=== PATIENT | male | born 1945 | race Hispanic/Latino ===

== ENCOUNTER 2019-07-24 21:15 | Emergency (ER) | payer OTHER ==
[2019-07-24] MEDS ORDERED: HYDROCODONE/APAP 10/325 TAB ONE (22:22)
[2019-07-24] MEDS ORDERED: HYDROCODONE/APAP 5/325 MG TAB ONE (22:24)
--- NOTE | 2019-07-24 23:49 | ER ---
Nurse's Notes [facility] Name: Gerry Silverman Age: 73 yrs Sex: Male : 1945 Arrival Date: 07/24/2019 Time: 21:20 Bed 23 Private MD: Fidel Santoro F Diagnosis: Contusion of right elbow Presentation: 07/24 21:36 Presenting complaint: Patient states: RIGHT elbow pain s/p fall sometime before 07/22. sr5 Pt lost his on 07/21 and doesn't remember exactly what day the fall was, but reports that he tripped on clothes on the floor, falling to the floor. Denies hitting his head. Denies LOC. Reports limited ROM in RIGHT elbow with worsening pain. Transition of care: patient was not received from another setting of care. Onset of symptoms was July 21, 2019. Care prior to arrival: None. 21:36 Method Of Arrival: Ambulatory 5 21:36 Acuity: KIRSTEN 4 sr5 Triage Assessment: 21:39 General: Appears uncomfortable, Behavior is cooperative. Pain: Complains of pain in sr5 dorsal aspect of right forearm, right elbow and palmar aspect of right forearm Pain currently is 10 out of 10 on a pain scale. Neuro: Level of Consciousness is awake, alert, obeys commands, Oriented to person, place, time, situation. Cardiovascular: Capillary refill < 3 seconds in bilateral fingers Patient's skin is warm and dry. Respiratory: Respiratory effort is even, unlabored, Respiratory pattern is regular, symmetrical. GI: No signs and/or symptoms were reported involving the gastrointestinal system. : No signs and/or symptoms were reported regarding the genitourinary system. Derm: No signs and/or symptoms reported regarding the dermatologic system. Musculoskeletal: No signs and/or symptoms reported regarding the musculoskeletal system. Historical: - Allergies: 21:39 PENICILLINS; sr5 - PMHx: 21:39 Hypertension; Hyperlipidemia; sr5 - Social history:: Smoking status: Patient/guardian denies using tobacco, never smoked. - Ebola Screening: : Patient negative for fever greater than or equal to 101.5 degrees Fahrenheit, and additional compatible Ebola Virus Disease symptoms. Screenin:48 Abuse screen: Denies threats or abuse. Nutritional screening: No deficits noted. sr5 Tuberculosis screening: No symptoms or risk factors identified. Fall Risk None identified. Assessment: 22:32 Reassessment: Xray at bedside. sr5 23:48 Reassessment: Pt reports decreased pain, placed in sling, remains AA\T\Ox4, equal sr5 unlabored resp, skin warm/dry/nc. Vital Signs: 21:39 BP 141 / 63; Pulse 118; Resp 18; Temp 99.7(O); Pulse Ox 95% on R/A; Weight 81.65 kg sr5 (R); Height 5 ft. 3 in. (160.02 cm); Pain 10/10; 23:48 Pulse 110; Resp 18; Pulse Ox 99% ; Pain 5/10; sr5 21:39 Body Mass Index 31.89 (81.65 kg, 160.02 cm) sr5 ED Course: 21:20 Patient arrived in ED. es 21:22 Fidel Santoro MD is Private Physician. es 21:36 Darius Calloway, RN is Primary Nurse. sr5 21:38 Triage completed. sr5 21:39 Arm band placed on left wrist. Patient placed in an exam room. sr5 22:05 Juan Jose Massey MD is Attending Physician. tw4 22:47 Elbow Right 3 View XRAY In Process Unspecified. EDMS 23:45 Fidel Santoro MD is Referral Physician. tw4 23:48 Ron Lopez MD is Referral Physician. tw4 23:48 Patient has correct armband on for positive identification. sr5 23:48 No provider procedures requiring assistance completed. Patient did not have IV access sr5 during this emergency room visit. Sling applied to right arm. Administered Medications: 22:22 Drug: [place] 5 mg-325 mg 1 tabs Route: PO; sr5 Outcome: 23:46 Discharge ordered by MD. tw4 23:48 Discharged to home ambulatory, with family. sr5 23:48 Condition: good 23:48 Discharge instructions given to patient, family, Instructed on discharge instructions, follow up and referral plans. medication usage, sling Demonstrated understanding of instructions, follow-up care, medications, Prescriptions given X 2. 23:58 Patient left the ED. sr5 Signatures: Dispatcher [employer] EDMS Chaya Hernandez Darius Calloway, RN RN sr5 Shilpa, Juan Jose, MD MD tw4
--- NOTE | 2019-07-24 23:49 | EDPHYS ---
Physician Documentation [facility] Name: Gerry Silverman Age: 73 yrs Sex: Male : 1945 Arrival Date: 07/24/2019 Time: 21:20 Bed 23 Private MD: Fidel Santoro F ED Physician Juan Jose Massey HPI: 07/25 05:34 This 73 yrs old Male presents to ER via Ambulatory with complaints of Elbow tw4 pain. 05:34 The patient or guardian complains of pain. The complaints affect the right antecubital tw4 area and right elbow. Context: The problem was sustained at home. Onset: The symptoms/episode began/occurred today. Treatment prior to arrival includes: no previous treatment. Associated signs and symptoms: The patient has no apparent associated signs or symptoms. The patient has not experienced similar symptoms in the past. Historical: - Allergies: 07/24 21:39 PENICILLINS; sr5 - PMHx: 21:39 Hypertension; Hyperlipidemia; sr5 - Social history:: Smoking status: Patient/guardian denies using tobacco, never smoked. - Ebola Screening: : Patient negative for fever greater than or equal to 101.5 degrees Fahrenheit, and additional compatible Ebola Virus Disease symptoms. ROS: 07/25 05:34 Constitutional: Negative for fever, chills, and weight loss, Eyes: Negative for injury, tw4 pain, redness, and discharge, Cardiovascular: Negative for chest pain, palpitations, and edema, Respiratory: Negative for shortness of breath, cough, wheezing, and pleuritic chest pain, Abdomen/GI: Negative for abdominal pain, nausea, vomiting, diarrhea, and constipation, Back: Negative for injury and pain. MS/extremity: Positive for injury or acute deformity, contusion, decreased range of motion, pain, swelling, tenderness. Exam: 05:34 Constitutional: This is a well developed, well nourished patient who is awake, alert, tw4 and in no acute distress. Head/Face: Normocephalic, atraumatic. Chest/axilla: Normal chest wall appearance and motion. Nontender with no deformity. No lesions are appreciated. Cardiovascular: Regular rate and rhythm with a normal S1 and S2. No gallops, murmurs, or rubs. Normal PMI, no JVD. No pulse deficits. Respiratory: Lungs have equal breath sounds bilaterally, clear to auscultation and percussion. No rales, rhonchi or wheezes noted. No increased work of breathing, no retractions or nasal flaring. Abdomen/GI: Soft, non-tender, with normal bowel sounds. No distension or tympany. No guarding or rebound. No evidence of tenderness throughout. Neuro: Awake and alert, GCS 15, oriented to person, place, time, and situation. Cranial nerves II-XII grossly intact. Motor strength 5/5 in all extremities. Sensory grossly intact. Cerebellar exam normal. Normal gait. 05:34 Musculoskeletal/extremity: Extremities: all appear grossly normal, with no appreciated pain with palpation. Vital Signs: 07/24 21:39 BP 141 / 63; Pulse 118; Resp 18; Temp 99.7(O); Pulse Ox 95% on R/A; Weight 81.65 kg sr5 (R); Height 5 ft. 3 in. (160.02 cm); Pain 10/10; 23:48 Pulse 110; Resp 18; Pulse Ox 99% ; Pain 5/10; sr5 21:39 Body Mass Index 31.89 (81.65 kg, 160.02 cm) sr5 MDM: 22:05 Patient medically screened. tw4 07/25 05:34 Differential diagnosis: dislocation, open fracture, contusion, abrasion. Data reviewed: tw4 vital signs, nurses notes. Data interpreted: monitor car operator: rhythm is regular. Counseling: I had a detailed discussion with the patient and/or guardian regarding: the historical points, exam findings, and any diagnostic results supporting the discharge/admit diagnosis. Special discussion: I discussed with the patient/guardian in detail that at this point there is no indication for admission to the hospital. It is understood, however, that if the symptoms persist or worsen the patient needs to return immediately for re-evaluation. 07/24 22:20 Order name: Elbow Right 3 View XRAY tw4 Administered Medications: 07/24 22:22 Drug: [place] 5 mg-325 mg 1 tabs Route: PO; sr5 Disposition: 07/24/19 23:46 Discharged to Home. Impression: Contusion of right elbow. - Condition is Stable. - Discharge Instructions: Elbow Contusion. - Prescriptions for Tramadol 50 mg Oral Tablet - take 1 tablet by ORAL route every 8 hours as needed; 12 tablet. Ativan 1 mg Oral Tablet - take 1 tablet by ORAL route every 8 hours As needed; 5 tablet. - Medication Reconciliation Form, Thank You Letter, Antibiotic Education, Prescription Opioid Use form. - Follow up: Fidel Santoro MD; When: Upon discharge from the Emergency Department; Reason: Recheck today's complaints, Continuance of care. Follow up: Ron Lopez MD; When: Upon discharge from the Emergency Department; Reason: Recheck today's complaints, Continuance of care. - Problem is new. - Symptoms have improved. Signatures: Dispatcher [employer] EDMS Darius Calloway RN RN sr5 Juan Jose Massey MD MD tw4 Corrections: (The following items were deleted from the chart) 23:48 23:46 07/24/2019 23:46 Discharged to Home. Impression: Contusion of right elbow. tw4 Condition is Stable. Forms are Medication Reconciliation Form, Thank You Letter, Antibiotic Education, Prescription Opioid Use. Follow up: Fidel Santoro; When: Upon discharge from the Emergency Department; Reason: Recheck today's complaints, Continuance of care. Problem is new. Symptoms have improved. tw4 23:58 23:48 07/24/2019 23:46 Discharged to Home. Impression: Contusion of right elbow. sr5 Condition is Stable. Discharge Instructions: Elbow Contusion. Prescriptions for Tramadol 50 mg Oral Tablet - take 1 tablet by ORAL route every 8 hours as needed; 12 tablet. and Forms are Medication Reconciliation Form, Thank You Letter, Antibiotic Education, Prescription Opioid Use. Follow up: Fidel Santoro; When: Upon discharge from the Emergency Department; Reason: Recheck today's complaints, Continuance of care. Follow up: Ron Lopez; When: Upon discharge from the Emergency Department; Reason: Recheck today's complaints, Continuance of care. Problem is new. Symptoms have improved. tw4
[2019-07-25 00:33] VITALS: BP 141/63; TEMP 99.7
[2019-07-25 00:34] VITALS: O2SAT 99
--- NOTE | 2019-07-25 09:15 | RAD REPORT ---
EXAM DESCRIPTION: RAD - Elbow Right 3 View - 07/24/2019 10:45 pm CLINICAL HISTORY: Persistent right elbow pain following fall several days earlier Send COMPARISON: None. FINDINGS: Radial head appears intact. This is the most common site for fracture. No other evidence f or fracture change. There is some elevation of the posterior fat pad but no fluid fluid level seen. P atient has some mild spurring along the articular margins of the joints. There is calcification at th e triceps attachment to the olecranon. No foreign body or other soft tissue abnormality. No other sig nificant finding. IMPRESSION: No fracture is seen. The patient does have dilatation of the posterior fat pad. Repeat imaging in 7 days could be performed if the patient has continued symptoms concerning for frac ture. MR imaging or CT imaging could also be employed to evaluate for acute bone or joint injury.
== END 2019-07-24 23:58 | disposition home or self-care (01) ==
LOC: ER 21:15
DX: S50.01XA Contusion of right elbow, initial encounter (principal); X58.XXXA Exposure to other specified factors, initial encounter; Y93.9 Activity, unspecified; Y92.009 Unspecified place in unspecified non-institutional (private) residence as the place of occurrence of the external cause; I10 Essential (primary) hypertension; Z88.0 Allergy status to penicillin
CPT/HCPCS: 99284

== ENCOUNTER 2019-08-26 22:53 | Emergency (ER) | payer OTHER ==
[2019-08-26] MEDS ORDERED: TRAMADOL HCL 50 MG TAB ONE (23:58)
[2019-08-27] MEDS ORDERED: HYDROCODONE/APAP 5/325 MG TAB ONE (00:34)
[2019-08-27] MEDS ORDERED: ENOXAPARIN 60 MG/0.6 ML SQ ONE (02:51)
--- NOTE | 2019-08-27 05:42 | EDPHYS ---
Physician Documentation [facility] Name: Gerry Silverman Age: 73 yrs Sex: Male : 1945 Arrival Date: 08/26/2019 Time: 22:56 Bed 6 Private MD: ED Physician Juan Jose Massey HPI: 08/27 04:17 This 73 yrs old Male presents to ER via Ambulatory with complaints of Foot tw4 Pain. 04:17 The patient presents with pain. The complaints affect the left foot. Context: The tw4 problem was sustained at home. Onset: The symptoms/episode began/occurred 2 week(s) ago, and became worse yesterday. Modifying factors: The symptoms are alleviated by nothing, the symptoms are aggravated by weight bearing, movement. Associated signs and symptoms: The patient has no apparent associated signs or symptoms. The patient has not experienced similar symptoms in the past. Historical: - Allergies: 08/26 23:13 PENICILLINS; bb - Home Meds: 23:13 Lisinopril Oral [Active]; gabapentin oral oral [Active]; blood thinner [Active]; bb Metoprolol Tartrate Oral [Active]; Omeprazole Oral [Active]; Iron CR Oral [Active]; Vit D [Active]; - PMHx: 23:13 Hyperlipidemia; Hypertension; Cancer; bb - PSHx: 23:13 stents; Appendectomy; tumor removed from bladder; bb - Immunization history:: Adult Immunizations up to date. - Coronavirus screen:: The patient has NOT traveled to [place], [place], or [place] in the past 14 days. Proceed with normal triage process as indicated. - Social history:: Smoking status: Patient denies any tobacco usage or history of. - Ebola Screening: : No symptoms or risks identified at this time. ROS: 08/27 04:17 MS/extremity: Positive for pain, tenderness, of the left lateral ankle, lateral aspect tw4 of left foot, left medial ankle, medial aspect of left foot and anterior aspect of left ankle. Constitutional: Negative for fever, chills, and weight loss, Eyes: Negative for injury, pain, redness, and discharge, Cardiovascular: Negative for chest pain, palpitations, and edema, Respiratory: Negative for shortness of breath, cough, wheezing, and pleuritic chest pain, Abdomen/GI: Negative for abdominal pain, nausea, vomiting, diarrhea, and constipation, Back: Negative for injury and pain, Skin: Negative for injury, rash, and discoloration, Neuro: Negative for headache, weakness, numbness, tingling, and seizure. MS/extremity: Positive for pain, swelling, tenderness. Exam: 04:17 Constitutional: This is a well developed, well nourished patient who is awake, alert, tw4 and in no acute distress. Head/Face: Normocephalic, atraumatic. Chest/axilla: Normal chest wall appearance and motion. Nontender with no deformity. No lesions are appreciated. Cardiovascular: Regular rate and rhythm with a normal S1 and S2. No gallops, murmurs, or rubs. Normal PMI, no JVD. No pulse deficits. Respiratory: Lungs have equal breath sounds bilaterally, clear to auscultation and percussion. No rales, rhonchi or wheezes noted. No increased work of breathing, no retractions or nasal flaring. Abdomen/GI: Soft, non-tender, with normal bowel sounds. No distension or tympany. No guarding or rebound. No evidence of tenderness throughout. Back: No spinal tenderness. No costovertebral tenderness. Full range of motion. Neuro: Awake and alert, GCS 15, oriented to person, place, time, and situation. Cranial nerves II-XII grossly intact. Motor strength 5/5 in all extremities. Sensory grossly intact. Cerebellar exam normal. Normal gait. 04:17 Musculoskeletal/extremity: Extremities: noted in the left lateral ankle, left Achilles, left medial ankle and anterior aspect of left ankle: decreased ROM, pain, swelling, tenderness, ROM: limited active range of motion due to pain, limited passive range of motion due to pain, Circulation is intact in all extremities. Sensation intact. Compartment Syndrome exam of affected extremity: is normal. Vital Signs: 08/26 23:13 BP 138 / 55; Pulse 98; Resp 16 S; Temp 98.3(O); Pulse Ox 95% on R/A; Weight 83.01 kg bb (R); Height 5 ft. 3 in. (160.02 cm) (R); Pain 10/10; 08/27 00:00 BP 133 / 67; Pulse 94; Resp 17; Pulse Ox 94% on R/A; rv 00:45 BP 132 / 71; Pulse 90; Resp 17; Pulse Ox 95% on R/A; rv 08/26 23:13 Body Mass Index 32.42 (83.01 kg, 160.02 cm) bb MDM: 08/26 23:21 Patient medically screened. tw4 08/27 04:20 Differential diagnosis: fracture, sprain, arthritis, gout. Data reviewed: vital signs, tw4 nurses notes. Data reviewed: lab test result(s), uric acid level. Data interpreted: Pulse oximetry: Interpretation: normal. Test interpretation: by ED physician or midlevel provider: plain radiologic studies. Counseling: I had a detailed discussion with the patient and/or guardian regarding: the historical points, exam findings, and any diagnostic results supporting the discharge/admit diagnosis, lab results, radiology results. ED course: labs revealed elevated uric acid level. 08/27 00:20 Order name: Uric Acid; Complete Time: 01:39 tw4 08/26 23:53 Order name: Ankle Left 3 View XRAY tw4 Administered Medications: 08/26 23:59 Drug: traMADol 50 mg {Note: RASS 0.} Route: PO; rv 08/27 00:55 Follow up: Response: No adverse reaction; RASS: Alert and Calm (0) rv 00:41 Drug: [place] 5 mg-325 mg 1 tabs Route: PO; rv 01:59 Follow up: Response: No adverse reaction; Marked relief of symptoms; Pain is decreased; rv RASS: Alert and Calm (0) Disposition: 08/27/19 01:39 Discharged to Home. Impression: Gout. - Condition is Stable. - Discharge Instructions: Gout. - Prescriptions for Allopurinol 100 mg Oral Tablet - take 1 tablet by ORAL route once daily; 30 tablet. - Medication Reconciliation Form, Thank You Letter, Antibiotic Education, Prescription Opioid Use form. - Follow up: Private Physician; When: Upon discharge from the Emergency Department; Reason: Recheck today's complaints, Continuance of care. - Problem is new. - Symptoms have improved. Signatures: Dispatcher [employer] EDMS Paula Gaston RN RN bb Juan C Loya RN RN ao Wadley, Terrence, MD MD tw4 Patric Holder RN RN rv Corrections: (The following items were deleted from the chart) 01:41 01:39 08/27/2019 01:39 Discharged to Home. Impression: Gout. Condition is Stable. Forms tw4 are Medication Reconciliation Form, Thank You Letter, Antibiotic Education, Prescription Opioid Use. Problem is new. Symptoms have improved. tw4 02:02 01:41 08/27/2019 01:39 Discharged to Home. Impression: Gout. Condition is Stable. Forms ao are Medication Reconciliation Form, Thank You Letter, Antibiotic Education, Prescription Opioid Use. Follow up: Private Physician; When: Upon discharge from the Emergency Department; Reason: Recheck today's complaints, Continuance of care. Problem is new. Symptoms have improved. tw4
--- NOTE | 2019-08-27 05:42 | ER ---
Nurse's Notes [facility] Name: Gerry Silverman Age: 73 yrs Sex: Male : 1945 Arrival Date: 08/26/2019 Time: 22:56 Bed 6 Private MD: Diagnosis: Gout Presentation: 08/26 23:08 Presenting complaint: Patient states: he is having left lateral ankle pain since this bb morning pain is 10/10 causing him difficulty walking, pt broke heel to left foot years ago and he has hx of sciatic nerve pain and was seeing pain management but pills were not working so he quit going. Transition of care: patient was not received from another setting of care. Onset of symptoms was August 26, 2019. Risk Assessment: Do you want to hurt yourself or someone else? Patient reports no desire to harm self or others. Initial Sepsis Screen: Does the patient meet any 2 criteria? No. Patient's initial sepsis screen is negative. Does the patient have a suspected source of infection? No. Patient's initial sepsis screen is negative. Care prior to arrival: None. 23:08 Method Of Arrival: Ambulatory 23:08 Acuity: KIRSTEN 3 bb Triage Assessment: 08/27 02:01 General: Appears in no apparent distress. Behavior is calm, cooperative. ao Historical: - Allergies: 08/26 23:13 PENICILLINS; bb - Home Meds: 23:13 Lisinopril Oral [Active]; gabapentin oral oral [Active]; blood thinner [Active]; bb Metoprolol Tartrate Oral [Active]; Omeprazole Oral [Active]; Iron CR Oral [Active]; Vit D [Active]; - PMHx: 23:13 Hyperlipidemia; Hypertension; Cancer; bb - PSHx: 23:13 stents; Appendectomy; tumor removed from bladder; bb - Immunization history:: Adult Immunizations up to date. - Coronavirus screen:: The patient has NOT traveled to [place], [place], or [place] in the past 14 days. Proceed with normal triage process as indicated. - Social history:: Smoking status: Patient denies any tobacco usage or history of. - Ebola Screening: : No symptoms or risks identified at this time. Screenin/30 00:00 Abuse screen: Denies threats or abuse. Denies injuries from another. Nutritional rv screening: No deficits noted. Tuberculosis screening: No symptoms or risk factors identified. Fall Risk None identified. Assessment: 08/26 23:59 General: Appears in no apparent distress. Pain: Complains of pain in left lateral rv ankle. Neuro: Level of Consciousness is awake, alert, obeys commands, Oriented to person, place, time, situation. Cardiovascular: Patient's skin is warm and dry. Respiratory: Airway is patent. Derm: Skin is intact. Musculoskeletal: Range of motion: limited in left ankle. Musculoskeletal: Swelling absent. 08/27 00:55 Reassessment: Patient appears in no apparent distress at this time. Patient and/or rv family updated on plan of care and expected duration. Pain level reassessed. Patient is alert, oriented x 3, equal unlabored respirations, skin warm/dry/pink. 01:55 Reassessment: Patient appears in no apparent distress at this time. DC given to patient ao and patient agree with POC and to follow up with PCP. Vital Signs: 08/26 23:13 BP 138 / 55; Pulse 98; Resp 16 S; Temp 98.3(O); Pulse Ox 95% on R/A; Weight 83.01 kg bb (R); Height 5 ft. 3 in. (160.02 cm) (R); Pain 10/10; 08/27 00:00 BP 133 / 67; Pulse 94; Resp 17; Pulse Ox 94% on R/A; rv 00:45 BP 132 / 71; Pulse 90; Resp 17; Pulse Ox 95% on R/A; rv 08/26 23:13 Body Mass Index 32.42 (83.01 kg, 160.02 cm) bb ED Course: 08/26 22:56 Patient arrived in ED. ag3 23:09 Triage completed. bb 23:13 Arm band placed on Patient placed in an exam room, on a stretcher, on pulse oximetry. bb Family accompanied patient. 23:15 Juan Jose Massey MD is Attending Physician. tw4 23:40 Juan C Loya, RN is Primary Nurse. ao 08/27 00:00 Patient has correct armband on for positive identification. Bed in low position. Call rv light in reach. Pulse ox on. NIBP on. 01:16 Ankle Left 3 View XRAY In Process Unspecified. EDMS 02:01 No provider procedures requiring assistance completed. Patient did not have IV access ao during this emergency room visit. 02:01 Davin wrap to left ankle. ao Administered Medications: 08/26 23:59 Drug: traMADol 50 mg {Note: RASS 0.} Route: PO; rv 08/27 00:55 Follow up: Response: No adverse reaction; RASS: Alert and Calm (0) rv 00:41 Drug: [place] 5 mg-325 mg 1 tabs Route: PO; rv 01:59 Follow up: Response: No adverse reaction; Marked relief of symptoms; Pain is decreased; rv RASS: Alert and Calm (0) Outcome: 01:39 Discharge ordered by MD. vivas 02:01 Discharged to home ambulatory. ao 02:01 Condition: good 02:01 Discharge instructions given to patient, family, Instructed on discharge instructions, follow up and referral plans. Demonstrated understanding of instructions, follow-up care, medications, Davin wrap 02:02 Patient left the ED. ao Signatures: Dispatcher [employer] EDPaula Carr RN RN Juan C Loya RN RN ao Wadley, Terrence, MD MD tw4 Patric Holder RN RN Aida Szymanski 3
--- NOTE | 2019-08-27 07:57 | RAD REPORT ---
EXAM DESCRIPTION: RAD - Ankle Left 3 View -08/27/2019 12:15 am CLINICAL HISTORY: Left ankle pain FINDINGS: No acute fracture or dislocation is seen. An old calcaneal fracture is evident The bones are osteoporotic. Vascular calcifications are seen. Small calcaneal spur
[2019-08-27 13:48] VITALS: TEMP 98.3
[2019-08-27 13:50] VITALS: BP 132/71; O2SAT 95
== END 2019-08-27 02:02 | disposition home or self-care (01) ==
LOC: ER 22:53
DX: M10.9 Gout, unspecified (principal); Z88.0 Allergy status to penicillin; I10 Essential (primary) hypertension; E78.5 Hyperlipidemia, unspecified
CPT/HCPCS: 36415; 84550; 73610; 99284; J1650

== ENCOUNTER 2019-09-16 07:18 | Inpatient (IN) | payer OTHER ==
[2019-09-16 08:14] LABS: Absolute Lymphocytes (CBC) 0.7 K/uL (0.7-4.9); Basophils % 0.5 % (0-1.3); Hematocrit 32.6 % (39.6-49.0); Lymphocytes % 7.7 % (15.3-44.8); MPV 8.2 fL (7.6-11.3)
[2019-09-16 08:23] LABS: ALT/SGPT 17 U/L (12-78); AST/SGOT 18 U/L (15-37); Albumin 3.1 g/dL (3.4-5.0); Alkaline Phosphatase 137 U/L (45-117); BUN Blood Urea Nitrogen 30 mg/dL (7-18); Bicarbonate 23 mmol/L (21-32); Bilirubin Direct 0.1 mg/dL (0-0.2); Bilirubin Total 0.3 mg/dL (0.2-1.0); Glucose Level 139 mg/dL (74-106); Lipase 154 U/L (73-393); NT PRO-BNP 114 pg/mL (<125); Potassium 4.5 mmol/L (3.5-5.1); Protein, Total 7.4 g/dL (6.4-8.2); Sodium Level 138 mmol/L (136-145); Troponin (Emerg Dept Use Only) < 0.02 ng/mL (0.0-0.045)
[2019-09-16] MEDS ORDERED: LEVALBUTEROL 1.25 MG/3 ML NEB ONE (08:28)
--- NOTE | 2019-09-16 09:08 | RAD REPORT ---
EXAM DESCRIPTION: RAD - Chest Single View - 09/16/2019 7:45 am CLINICAL HISTORY: DYSPNEA Chest pain. COMPARISON: CHEST SINGLE VIEW dated 10/01/2013; CHEST PA AND LAT 2 VIEW dated 08/08/2012; CHEST SINGLE VIEW dated 08/07/2012; CHEST PA AND LAT 2 VIEW dated 05/02/2011 FINDINGS: Portable technique limits examination quality. Bilateral pulmonary opacities are present with reticulonodular appearance. Moderate soft tissue densi ty seen along the right peritracheal stripe region without shift of midline structures. The heart is normal in size. Elevated right hemidiaphragm is noted.Advise followup CT imaging for further assessme nt of these findings.
[2019-09-16 09:32] LABS: Urine Blood NEGATIVE (NEG); Urine Glucose NEGATIVE (NEG); Urine Protein NEGATIVE (NEG); Urine Specific Gravity <1.005 (1.005-1.030); Urine pH 5.5 (5.0-7.0)
[2019-09-16] MEDS ORDERED: NA CHLORIDE 0.9% 500 ML ONE (09:35)
--- NOTE | 2019-09-16 09:53 | RAD REPORT ---
EXAM DESCRIPTION: CT - Chest Abdomen Pelvis W Cont - 09/16/2019 9:04 am CLINICAL HISTORY: Chest and abdomen pain. dyspnea, abd pain, abd distension COMPARISON: No comparisons TECHNIQUE: Approximately 100 mL nonionic IV contrast was administered to the patient. All CT scans are performed using dose optimization technique as appropriate and may include automated exposure control or mA/KV adjustment according to patient size. FINDINGS: Large neoplastic mass is identified in the right suprahilar region measuring 6.1 x 5.6 cm with evidence mediastinal invasion.Multiple enlarged mediastinal lymph nodes are present including th e pretracheal region measuring 18 mm, AP window region measuring 4.4 x 2.2 cm, sub- carinal region me asuring 2.2 cm, left hilar region measuring 2.8 x 1.9 cm 10 or right hilar location measuring 2.8 x 2 .8 cm.Loculated small to moderate right pleural effusion is present with atelectasis in the right jostin g base.Innumerable small nodules are present bilaterally likely metastatic in etiology. Mild fatty liver is seen. Multiple small low-density liver lesions are present, indeterminate. The la rgest lesion is in the left lobe of the liver measuring 11 mm. The spleen, pancreas, adrenal glands a nd kidneys are within normal limits. No bowel obstruction, free air, free fluid or abscess. Normal appendix. Aortoiliac atherosclerosis. N o pathologic lymphadenopathy in the abdomen or pelvis. Small fat containing inguinal hernias bilatera lly. Lumbosacral degenerative changes are evident. No lytic or blastic bone lesion evident. IMPRESSION: Large right hilar/ suprahilar malignancy with mediastinal invasion.Innumerable pulmonary nodules seen compatible with metastatic disease. Bilateral metastatic hilar and mediastinal adenopat hy also present. Multiple hypodense liver lesions are too small fully characterize but worrisome for metastasis. MRI l iver protocol with contrast would be advised for followup assessment.
--- NOTE | 2019-09-16 10:11 | ER ---
Nurse's Notes [facility] Name: Gerry Silverman Age: 73 yrs Sex: Male : 1945 Arrival Date: 09/16/2019 Time: 07:22 Bed 13 Private MD: Fidel Santoro F Diagnosis: Metastatic lung cancer - new diagnosis;Hypoxemia;Dyspnea, unspecified Presentation: 09/16 07:34 Presenting complaint: Patient states: i have been up since 1 am and i cant catch my tw2 breath, Saturday i had an anxiety attack, i just lost my and Saturday i went to the dr and they didn't give me any pills but its more when i lay down that i feel short of breath, and worse when i lay flat, my dr dont open until 830 but i feel like i cant wait and my stomach is bloated. Transition of care: patient was not received from another setting of care. Onset of symptoms was September 16, 2019. Risk Assessment: Do you want to hurt yourself or someone else? Patient reports no desire to harm self or others. Initial Sepsis Screen: Does the patient meet any 2 criteria? HR > 90 bpm. No. Patient's initial sepsis screen is negative. Does the patient have a suspected source of infection? No. Patient's initial sepsis screen is negative. Care prior to arrival: None. 07:34 Method Of Arrival: Wheelchair tw2 07:34 Acuity: KIRSTEN 2 tw2 07:[address] Still at bedside at this. tw2 Triage Assessment: 07:38 General: Appears in no apparent distress. Behavior is calm, cooperative, appropriate tw2 for age. Pain: Denies pain. Respiratory: Reports Onset: The symptoms/episode began/occurred "since Saturday but i think this is different", the patient has mild shortness of breath. Respiratory: Reports shortness of breath. Historical: - Allergies: 08:21 PENICILLINS; tw2 - Home Meds: 08:21 gabapentin 100 mg oral cap 3 caps 3 times per day [Active]; Lisinopril Oral 1 tab once tw2 daily [Active]; atorvastatin oral oral 1 tab once daily [Active]; Iron CR 68 mg Oral 1 tab daily [Active]; Vitamin D 125 mcg Oral daily [Active]; pentoxifylline 400 mg oral TbER 1 tab 3 times per day [Active]; pantoprazole oral oral 1 tab once daily [Active]; metoprolol tartrate 50 mg Oral tab 1 tab 2 times per day [Active]; clopidogrel 75 mg oral tab 1 tab once daily [Active]; allopurinol 100 mg Oral tab 1 tab once daily [Active]; Pattie Aspirin oral 81 mg oral 1 tab once daily [Active]; - PMHx: 08:21 Cancer; Hyperlipidemia; Hypertension; Gout; tw2 - PSHx: 08:21 stents; Appendectomy; tumor removed from bladder; tw2 - Immunization history:: Adult Immunizations. - Coronavirus screen:: The patient has NOT traveled to [place] in the past 14 days. - Family history:: not pertinent. - Social history:: Smoking status: Patient/guardian denies using tobacco, the patient reports quitting approximately 19 years ago, Patient uses alcohol, patient/guardian reports recent binge of alcohol consumption. "i used to smoke for 50 years but i quit when i had cancer". - Hospitalizations: : No recent hospitalization is reported. - Ebola Screening: : Patient denies travel to an Ebola-affected area in the 21 days before illness onset. Screenin:37 Abuse screen: Denies threats or abuse. Nutritional screening: No deficits noted. tw2 Tuberculosis screening: No symptoms or risk factors identified. Fall Risk None identified. Assessment: 07:45 General: Appears in no apparent distress. well groomed, Behavior is cooperative, tw2 appropriate for age, anxious. Pain: Denies pain. Neuro: Level of Consciousness is awake, alert, obeys commands, Oriented to person, place, time, situation. Neuro: Reports headache in right temporal area. Cardiovascular: Heart tones S1 S2 Patient's skin is warm and dry. Rhythm is sinus tachycardia. Respiratory: Reports shortness of breath at rest on exertion Airway is patent Respiratory effort is even, unlabored, Respiratory pattern is regular, symmetrical, Breath sounds are clear bilaterally. Denies cough. GI: Abdomen is round distended, Bowel sounds present X 4 quads. Abd is soft and non tender X 4 quads. Reports bloating. : No signs and/or symptoms were reported regarding the genitourinary system. EENT: No signs and/or symptoms were reported regarding the EENT system. Derm: No signs and/or symptoms reported regarding the dermatologic system. Musculoskeletal: No signs and/or symptoms reported regarding the musculoskeletal system. Circulation, motion, and sensation intact. Range of motion: intact in all extremities. 08:08 Reassessment: pt states " i feel like i could explain it better is czech", Dr. Still tw2 notified and at bedside at this time. 08:29 Reassessment: No changes from previously documented assessment. Patient and/or family tw2 updated on plan of care and expected duration. Pain level reassessed. Patient is alert, oriented x 3, equal unlabored respirations, skin warm/dry/pink. 09:35 Reassessment: Patient appears in no apparent distress at this time. Patient and/or tw2 family updated on plan of care and expected duration. Pain level reassessed. Patient is alert, oriented x 3, equal unlabored respirations, skin warm/dry/pink. 10:30 Reassessment: Patient appears in no apparent distress at this time. No changes from tw2 previously documented assessment. Patient and/or family updated on plan of care and expected duration. Pain level reassessed. Patient is alert, oriented x 3, equal unlabored respirations, skin warm/dry/pink. 11:00 Reassessment: Patient appears in no apparent distress at this time. No changes from tw2 previously documented assessment. Patient and/or family updated on plan of care and expected duration. Pain level reassessed. Patient is alert, oriented x 3, equal unlabored respirations, skin warm/dry/pink. 12:03 Reassessment: Patient appears in no apparent distress at this time. No changes from tw2 previously documented assessment. Patient and/or family updated on plan of care and expected duration. Pain level reassessed. Patient is alert, oriented x 3, equal unlabored respirations, skin warm/dry/pink. Vital Signs: 07:37 BP 145 / 73; Pulse 124; Resp 20; Temp 98.8(TE); Pulse Ox 93% on R/A; tw2 08:09 BP 136 / 66; Pulse 119; Resp 20; Temp 98.2(O); Pulse Ox 94% on 2 lpm NC; tw2 09:36 BP 146 / 61; Pulse 115; Resp 17; Pulse Ox 94% on 2 lpm NC; tw2 10:30 BP 149 / 75; Pulse 110; Resp 18; Pulse Ox 94% on R/A; tw2 11:00 BP 148 / 70; Pulse 110; Resp 19; Pulse Ox 95% on 2 lpm NC; tw2 12:02 BP 136 / 62; Pulse 113; Resp 19; Pulse Ox 96% on 2 lpm NC; tw2 07:37 pt placed on o2 at 2L, will continue to monitor. tw2 ED Course: 07:22 Patient arrived in ED. mr 07:22 Fidel Santoro MD is Private Physician. mr 07:26 Teddy Still MD is Attending Physician. rn 07:26 Hanh Robledo RN is Primary Nurse. tw2 07:26 Bed in low position. Call light in reach. Side rails up X 1. human resources safety manager on. Pulse tw2 ox on. NIBP on. 07:36 Triage completed. tw2 07:38 Arm band placed on. EKG completed in triage. Results shown to MD. tw2 07:45 Inserted saline lock: 20 gauge in right forearm, using aseptic technique. Blood tw2 collected. 07:46 XRAY CXR (1 view) In Process Unspecified. EDMS 09:41 CT Chest, Abdomen, Pelvis - W/Contrast In Process Unspecified. EDMS 10:08 Fidel Santoro MD is Hospitalizing Provider. rn 12:00 Awaiting: unsuccessful attempt to give report to floor at this time. per charge nurse tw2 she will call me back. 12:24 No provider procedures requiring assistance completed. Patient admitted, IV remains in tw2 place. Administered Medications: 08:27 Drug: Xopenex 1.25 mg Route: Inhalation; tw2 12:14 Follow up: Response: No adverse reaction; Marked relief of symptoms; Marked relief of tw2 symptoms per pt 09:34 Drug: NS 0.9% 500 ml Route: IV; Rate: bolus; Site: right forearm; tw2 10:30 Follow up: Response: No adverse reaction; IV Status: Completed infusion; IV Intake: tw2 500ml Intake: 10:30 IV: 500ml; Total: 500ml. tw2 Outcome: 10:09 Decision to Hospitalize by Provider. rn 12:24 Admitted to Med/surg accompanied by nurse, via wheelchair, room 409, with oxygen, with tw2 chart, Report called to ROSAURA Gardner 12:24 Condition: stable 12:24 Instructed on the need for admit. 12:43 Patient left the ED. tw2 Signatures: Dispatcher [employer] Tammie Ritchie Roman, MD MD rn Wise, Tara, RN RN tw2
--- NOTE | 2019-09-16 10:12 | EDPHYS ---
Physician Documentation [facility] Name: Gerry Silverman Age: 73 yrs Sex: Male : 1945 Arrival Date: 09/16/2019 Time: 07:22 Bed 13 Private MD: Fidel Santoro F ED Physician Teddy Still HPI: 09/16 07:37 This 73 yrs old Male presents to ER via Wheelchair with complaints of rn Shortness Of Breath. 07:37 The patient has shortness of breath at rest, with light activity. Onset: The rn symptoms/episode began/occurred 3 day(s) ago. Duration: The symptoms are intermittent. The patient's shortness of breath is aggravated by exertion, supine position. Associated signs and symptoms: Pertinent positives: This patient does not have any pertinent positive signs or symptoms associated with shortness of breath. Pertinent negatives: chest pain, non-productive cough, productive cough, fever, hemoptysis, vomiting. Severity of symptoms: At their worst the symptoms were moderate in the emergency department the symptoms are unchanged. The patient has not experienced similar symptoms in the past. The patient has been recently seen by a physician:. Reports sob, began a few days ago, seen by PCP, told maybe anxiety, no fever/cough/chest pain. Reports worse when laying flat. Also feels abdomen is bloated and impeding his breathing. + former smoker and still actively drinks, has cut down. No blood in stool or dark stool. . Historical: - Allergies: 08:21 PENICILLINS; tw2 - Home Meds: 08:21 gabapentin 100 mg oral cap 3 caps 3 times per day [Active]; Lisinopril Oral 1 tab once tw2 daily [Active]; atorvastatin oral oral 1 tab once daily [Active]; Iron CR 68 mg Oral 1 tab daily [Active]; Vitamin D 125 mcg Oral daily [Active]; pentoxifylline 400 mg oral TbER 1 tab 3 times per day [Active]; pantoprazole oral oral 1 tab once daily [Active]; metoprolol tartrate 50 mg Oral tab 1 tab 2 times per day [Active]; clopidogrel 75 mg oral tab 1 tab once daily [Active]; allopurinol 100 mg Oral tab 1 tab once daily [Active]; Pattie Aspirin oral 81 mg oral 1 tab once daily [Active]; - PMHx: 08:21 Cancer; Hyperlipidemia; Hypertension; Gout; tw2 - PSHx: 08:21 stents; Appendectomy; tumor removed from bladder; tw2 - Immunization history:: Adult Immunizations. - Coronavirus screen:: The patient has NOT traveled to [place] in the past 14 days. - Family history:: not pertinent. - Social history:: Smoking status: Patient/guardian denies using tobacco, the patient reports quitting approximately 19 years ago, Patient uses alcohol, patient/guardian reports recent binge of alcohol consumption. "i used to smoke for 50 years but i quit when i had cancer". - Hospitalizations: : No recent hospitalization is reported. - Ebola Screening: : Patient denies travel to an Ebola-affected area in the 21 days before illness onset. ROS: 07:39 Constitutional: Negative for fever, chills, and weight loss, Eyes: Negative for injury, rn pain, redness, and discharge, Neck: Negative for injury, pain, and swelling, Cardiovascular: Negative for chest pain, palpitations, and edema, Respiratory: + sob Abdomen/GI: + abd bloating, negative for vomiting/diarrhea/blood in stool MS/Extremity: Negative for injury and deformity, Skin: Negative for injury, rash, and discoloration, Neuro: Negative for headache, weakness, numbness, tingling, and seizure. Exam: 07:39 Constitutional: This is a well developed, well nourished patient who is awake, alert, rn mild tachypnea Head/Face: Normocephalic, atraumatic. ENT: Dry MM, no swelling or stridor Cardiovascular: Tachycardic, regular, weak but equal distal pulses Respiratory: + mild tachypnea, no retractions, crackles bilaterally, diminished at bases Abdomen/GI: soft, mild mid abd tenderness, no masses MS/ Extremity: Pulses equal, no cyanosis. Neurovascular intact. Full, normal range of motion. Equal circumference. Neuro: Awake and alert, GCS 15, oriented to person, place, time, and situation. Cranial nerves II-XII grossly intact. Motor strength 5/5 in all extremities. Sensory grossly intact. 07:41 ECG was reviewed by the Attending Physician. rn Vital Signs: 07:37 BP 145 / 73; Pulse 124; Resp 20; Temp 98.8(TE); Pulse Ox 93% on R/A; tw2 08:09 BP 136 / 66; Pulse 119; Resp 20; Temp 98.2(O); Pulse Ox 94% on 2 lpm NC; tw2 09:36 BP 146 / 61; Pulse 115; Resp 17; Pulse Ox 94% on 2 lpm NC; tw2 10:30 BP 149 / 75; Pulse 110; Resp 18; Pulse Ox 94% on R/A; tw2 11:00 BP 148 / 70; Pulse 110; Resp 19; Pulse Ox 95% on 2 lpm NC; tw2 12:02 BP 136 / 62; Pulse 113; Resp 19; Pulse Ox 96% on 2 lpm NC; tw2 07:37 pt placed on o2 at 2L, will continue to monitor. tw2 MDM: 07:26 Patient medically screened. rn 10:07 Differential diagnosis: CHF exacerbation, Chronic Obstructive Pulmonary Disease rn Myocardial Infarction pneumonia, Pneumothorax pulmonary edema, malignancy, effusion. Data reviewed: vital signs, nurses notes, lab test result(s), radiologic studies, CT scan, plain films, and as a result, I will admit patient. Counseling: I had a detailed discussion with the patient and/or guardian regarding: the historical points, exam findings, and any diagnostic results supporting the discharge/admit diagnosis, lab results, radiology results, the need for further work-up and treatment in the hospital. Response to treatment: the patient's symptoms have mildly improved after treatment. Admission orders: after a detailed discussion of the patient's condition and case, the admit orders are written by me. ED course: Pt with lung malignancy, appears metastatic, patient does not want chemo or surgery, but still abnormal vitals including oxygen requirement, will admit for pulmonary consultation and to setup future care. . 09/16 07:36 Order name: Blood Culture Adult (2) rn 09/16 07:36 Order name: BMP; Complete Time: : rn 09/16 07:36 Order name: CBC with Diff; Complete Time: 08: rn 09/16 07:36 Order name: Hepatic Function; Complete Time: : rn 09/16 07:36 Order name: Lipase; Complete Time: : rn 09/16 07:36 Order name: NT PRO-BNP; Complete Time: : rn 09/16 07:36 Order name: XRAY CXR (1 view); Complete Time: 10: rn 09/16 07:36 Order name: Troponin (emerg Dept Use Only); Complete Time: 09:19 rn 09/16 07:36 Order name: Flu; Complete Time: 09:19 rn 09/16 07:37 Order name: Procalcitonin; Complete Time: 09:19 rn 09/16 07:51 Order name: CT Chest, Abdomen, Pelvis - W/Contrast rn 09/16 09:22 Order name: Urine Dipstick--Ancillary (enter results) bd 09/16 09:34 Order name: Urine Dipstick-Ancillary; Complete Time: 09:34 EDMS 09/16 07:36 Order name: EKG; Complete Time: 07:37 rn 09/16 07:36 Order name: Cardiac monitoring; Complete Time: 07:42 rn 09/16 07:36 Order name: EKG - Nurse/Tech; Complete Time: 07:42 rn 09/16 07:36 Order name: IV Saline Lock; Complete Time: 08:23 rn 09/16 07:36 Order name: Labs collected and sent; Complete Time: 08:23 rn 09/16 07:36 Order name: O2 Per Protocol; Complete Time: 08:24 rn 09/16 07:36 Order name: O2 Sat Monitoring; Complete Time: 08:24 rn EC:41 Rate is 117 beats/min. Rhythm is regular. QRS [place] is Normal. UT interval is normal. rn QRS interval is normal. QT interval is normal. No Q waves. T waves are Normal. No ST changes noted. Clinical impression: Sinus tachycardia. Interpreted by me. Reviewed by me. Administered Medications: 08:27 Drug: Xopenex 1.25 mg Route: Inhalation; tw2 12:14 Follow up: Response: No adverse reaction; Marked relief of symptoms; Marked relief of tw2 symptoms per pt 09:34 Drug: NS 0.9% 500 ml Route: IV; Rate: bolus; Site: right forearm; tw2 10:30 Follow up: Response: No adverse reaction; IV Status: Completed infusion; IV Intake: tw2 500ml Disposition: 09/16/19 10:09 Hospitalization ordered by Fidel Santoro for Inpatient Admission. Preliminary diagnosis are Metastatic lung cancer - new diagnosis, Hypoxemia, Dyspnea, unspecified. - Bed requested for Telemetry/MedSurg (Inpatient). - Status is Inpatient Admission. tw2 - Condition is Stable. - Problem is new. - Symptoms have improved. Signatures: Dispatcher [employer] EDRI Yuni Brown bd Teddy Still MD MD rn Wise, Tara, RN RN tw2 Corrections: (The following items were deleted from the chart) 07:55 07:42 Abdomen Pelvis W Con+CT.RAD.BRZ ordered. EDRI EDRI 11:12 10:09 Hospitalization Ordered by Fidel Santoro MD for Inpatient Admission. Preliminary bd diagnosis is Metastatic lung cancer - new diagnosis; Hypoxemia; Dyspnea, unspecified. Bed requested for Telemetry/MedSurg (Inpatient). Status is Inpatient Admission. Condition is Stable. Problem is new. Symptoms have improved. rn 12:43 11:12 09/16/2019 10:09 Hospitalization Ordered by Fidel Santoro MD for Inpatient tw2 Admission. Preliminary diagnosis is Metastatic lung cancer - new diagnosis; Hypoxemia; Dyspnea, unspecified. Bed requested for Telemetry/MedSurg (Inpatient). Status is Inpatient Admission. Condition is Stable. Problem is new. Symptoms have improved. bd
--- NOTE | 2019-09-16 10:19 | EKG ---
Test Date: 2019-09-16 Test Time: 07:38:54 Denial Resolution Specialist: AGUILAR MEASUREMENT RESULTS: Intervals: Rate: 117 NV: 146 QRSD: 72 QT: 312 QTc: 435 [place]: P: 34 NV: 146 QRS: -25 T: 43 INTERPRETIVE STATEMENTS: Sinus tachycardia Septal infarct, age undetermined Abnormal ECG Compared to ECG 10/02/2013 09:01:18 Myocardial infarct finding now present Sinus rhythm no longer present Electronically Signed On 09-16-19 10:18:22 SEWAGE DISPOSAL ENGINEER by Maximiliano Vogt
[2019-09-16] MEDS ORDERED: ONDANSETRON 4 MG/2 ML VIAL IV PRN (13:09)
[2019-09-16 13:40] VITALS: BMI 32.4
[2019-09-16] MEDS: NA CHLORIDE 0.9% 1,000 ML IV SCH ×2 (13:59→23:09)
[2019-09-16] MEDS: IPRATROPIUM BROM 0.5MG/2.5ML NEB PRN ×2 (15:30→21:15)
[2019-09-16] MEDS ORDERED: ALPRAZOLAM 0.25 MG TABLET PO PRN (16:40)
[2019-09-16] MEDS ORDERED: ACETAMINOPHEN 500 MG TAB PO PRN (16:40)
--- NOTE | 2019-09-16 16:46 | P.CNS ---
Date of Consult: 09/16/19 Reason for Consult: Possible lung cancer Chief Complaint: Shortness of breath chest discomfort History of Present Illness: Patient is a pleasant 73-year-old man has been problems having problems since last Saturday the complaining of shortness of breath become recently matt was anxiety has some abdominal discomfort progressing to the chest into the neck complaining of headaches no prior history of COPD quit smoking in 2007 no prior history of lung cancer and was admitted to the hospital as a usual mediastinal mass with volume loss most likely lung cancer very anxious Allergies Penicillins Allergy (Verified 10/02/16 16:35) CHILDHOOD REACTION Home Medications: Pentoxifylline [Trental] 400 mg PO TID 05/21/12 Atorvastatin Calcium [Lipitor] 40 mg PO DAILY #0 tablet 05/22/12 Pantoprazole [Protonix Tab*] 40 mg PO DAILY #0 tab 05/22/12 lisinopriL [Prinivil*] 12.5 mg PO DAILY 10/01/13 Allopurinol 1 tab PO DAILY 09/16/19 Aspirin 81 mg PO DAILY 09/16/19 Cholecalciferol (Vitamin D3) [Vitamin D 5,000 IU Cap*] 1 tab PO DAILY 09/16/19 Clopidogrel Bisulfate [Plavix] 75 mg PO DAILY 09/16/19 Gabapentin 600 mg PO BID 09/16/19 Metoprolol Tartrate 50 mg PO BID 09/16/19 - Past Medical/Surgical History Diabetic: No -: htn -: hyperlipidemia -: cad -: pvd -: Appendectomy -: bladder cyst removed -: heart and leg stents - Family History Father Medical History: Kidney disease Mother Medical History: Other (see notes) Notes: Asthma - Social History Smoking Status: Never smoker Alcohol use: Yes CD- Drugs: No Caffeine use: Yes Place of Residence: Home Review of Systems 10-point ROS is otherwise unremarkable General: Weakness Respiratory: Shortness of Breath Cardiovascular: Chest Pain Physical Examination Temp Pulse Resp BP Pulse Ox 97.4 F 103 H 19 133/63 94 09/16/19 13:09 09/16/19 13:09 09/16/19 13:09 09/16/19 13:09 09/16/19 13:09 General: Alert, Oriented x3, Moderate distress Respiratory: Clear to auscultation bilaterally, Diminished (Diminished on the right side) Cardiovascular: No edema, Regular rate/rhythm Gastrointestinal: Normal bowel sounds, Soft and benign (Little bloated) Musculoskeletal: No clubbing, No swelling Laboratory Data (last 24 hrs) 09/16/19 07:45: WBC 8.5, Hgb 10.4 L, Hct 32.6 L, Plt Count 248 09/16/19 07:45: Sodium 138, Potassium 4.5, BUN 30 H, Creatinine 1.15, Glucose 139 H, Total Bilirubin 0.3, AST 18, ALT 17, Alkaline Phosphatase 137 H, Lipase 154 - Problems (1) Lung cancer Current Visit: Yes Status: Acute Plan: Patient is 73 years of age admitted with shortness of breath chest discomfort appears to have advanced age lung cancer patient appears to have lymphangitic spread multiple pulmonary nodules volume loss advanced stage lung cancer patient however does not any chemo radiation has refused biopsy vital signs are stable Dc IV fluids for now I have added steroid prognosis poor continue with bronchodilator for to hospice care family members present at the bedside Qualifiers: Laterality: right
[2019-09-16] MEDS: METHYLPREDNISOLONE 40 MG INJ IV SCH ×2 (17:03→17:11)
[2019-09-16] MEDS: MORPHINE 2 MG/ML SYR IV PRN (18:23)
[2019-09-16] MEDS: ALBUTEROL 2.5 MG/3 ML NEB SOL NEB PRN (21:15)
[2019-09-16] MEDS: LORAZEPAM 0.5 MG TABLET PO PRN (21:30)
[2019-09-17] MEDS: METHYLPREDNISOLONE 40 MG INJ IV SCH ×2 (00:07→06:31)
--- NOTE | 2019-09-17 00:49 | HP ---
Date of Admission: 09/16/2019 History Of Present Illness: A 73-year-old male who was a heavy smoker for a long time until he stopp ed back in 2007, been doing fairly well until a few weeks ago, he started having gradually tired, fat igued, with some shortness of breath. He did not pay much attention to that, but over the past few d ays his shortness of breath had increased to where he came to emergency room today and his workup melvin wed that the patient had lung cancer with metastasis and he was hypoxic, so was admitted for that and patient had no nausea, no vomiting, no chest pain. Voiced no other complaints. Review of Systems: Respiratory: As above. Cardiovascular: No complaints. Genitourinary: No complaints. Skeletomuscular: No complaints. Gastrointestinal: No complaints. Neurological: No complaints. Past Medical History: Includes: 1.Hypertension. 2.Hyperlipidemia. 3.History of stent placement, . 4.Gout. 5.Appendectomy. 6.Urinary bladder tumor removal. Family History: Noncontributing. Social History: As mentioned, patient stopped smoking about 30 years ago. No alcohol or drug abuse history. Medications: Include gabapentin 100 mg p.o. t.i.d., lisinopril, atorvastatin, pentoxifylline 400 mg p.o. 3 times a day, pantoprazole 40 mg daily, metoprolol 50 mg b.i.d., Plavix 75 mg daily, allopurino l 100 mg daily, baby aspirin. Allergies: PENICILLIN. Physical Examination: VITAL SIGNS: Blood pressure 145/73, pulse 120, respiratory rate 20, temperature 98.8 on 3 L oxygen n adair prong, pulse oximetry was 94%. HEART: Regular rate and rhythm. CHEST: Clear to auscultation. Abdomen: Soft, nontender. No hepatosplenomegaly. Bowel sounds are normoactive. EXTREMITIES: No edema. No cyanosis. Peripheral pulses are felt. NEUROLOGICAL: Alert, awake, nonfocal, grossly intact. Laboratory Data: CBC showed hemoglobin 10.4, hematocrit 32.6, white cell count 8.5, platelet count 2 48. Chemistry; BUN 30, creatinine 1.15, GFR 62, blood sugar 139. Urinalysis noted. Imaging Data: Chest x-ray showed bilateral pulmonary opacities with appearance and right lesion with midline shift. Elevated hemidiaphragm. CTA of the chest showed large right h ilar/suprahilar malignancy with mediastinal invasion and multiple pulmonary nodules compatible with m etastatic disease. Also, hypodense liver lesions could be also metastatic. EKG; sinus tachycardia, septal Q-waves. Assessment And Plan: Shortness of breath and fatigue. I think anemia of malignancy has caused the p atient to be feeling short of breath, coming to the emergency room. We will go ahead and admit him, put him on oxygen protocol. We will ask Dr. Caceres Pulmonary to see him. We will continue his ho me medicines for his chronic medical illnesses, and we will go ahead and follow pulmonary recommendat ions from that standpoint. Patient right now is clinically stable. Discussed his diagnosis with the patient and so far he said he would discuss options of treatment with Dr. Caceres Pulmonary. He _ lung specialist too as he said. Look orders for details. MFS/MODL Voice ID: [id number]
[2019-09-17] MEDS: ALBUTEROL 2.5 MG/3 ML NEB SOL NEB PRN ×3 (03:50→20:50)
[2019-09-17] MEDS: IPRATROPIUM BROM 0.5MG/2.5ML NEB PRN ×3 (03:50→20:50)
[2019-09-17] MEDS: MORPHINE 2 MG/ML SYR IV PRN ×2 (04:21→21:41)
[2019-09-17 04:59] LABS: Absolute Lymphocytes (CBC) 0.5 K/uL (0.7-4.9); Basophils % 0.1 % (0-1.3); Hematocrit 31.3 % (39.6-49.0); Lymphocytes % 5.5 % (15.3-44.8); MPV 8.4 fL (7.6-11.3); RBC Red Blood Cell Count 3.76 M/uL (4.33-5.43)
[2019-09-17 05:09] LABS: Potassium 4.8 mmol/L (3.5-5.1)
[2019-09-17] MEDS: LORAZEPAM 0.5 MG TABLET PO PRN ×3 (05:27→23:30)
[2019-09-17 08:29] LABS: Anisocytosis 1+; Blood Morphology Comment NOTED (NOT SEEN); Platelet Estimate ADEQ
[2019-09-17] MEDS ORDERED: HYDROCODONE/APAP 5/325 MG TAB PO PRN (08:47)
--- NOTE | 2019-09-17 08:51 | P.PN ---
Subjective Date of Service: 09/17/19 Chief Complaint: Suspected lung cancer Patient is still complaining of chest discomfort unable to lie down in a supine position very anxious family members at the bedside Review of Systems General: Weakness Respiratory: Cough, Shortness of Breath Cardiovascular: Chest Pain Physical Examination - Vital Signs Temperature: 97.6 F Blood Pressure: 139/65 Pulse: 104 Respirations: 18 Pulse Ox (%): 98 - Physical Exam General: Alert, Moderate distress Respiratory: Clear to auscultation bilaterally Cardiovascular: No edema, Regular rate/rhythm - Studies Microbiology Data (last 24 hrs): 09/16/19 07:45 Nasopharnyx Influenza Type A Antigen Screen - Final 09/16/19 07:45 Nasopharnyx Influenza Type B Antigen Screen - Final Assessment & Plan - Problems (Diagnosis) (1) Lung cancer Current Visit: Yes Status: Acute Plan: Patient's presumably has stage IV lung cancer family members present at the bedside. Discussed with them options for a bronchoscopy to determine the type of lung cancer patient in right not is very reluctant to undergo any biopsies he does not want chemo on radiation of Consul tired hospice care Dc steroids IV fluids 2 D echo hydrocodone as patient is on Plavix will have to wait a week to do a bronchoscopy Qualifiers: Laterality: right
--- NOTE | 2019-09-17 16:06 | PN ---
Patient is sitting by bedside chair, comfortable. No new complaints. Objective: Vital Signs: Blood pressure 140/65, pulse 100, temperature 97.6. Heart: Tachycardic. Regular rate. Chest: Clear to auscultation. Abdomen: Soft, benign, nontender. Neurologic Examination: Alert, oriented x4. Grossly intact. Extremities: No edema. Peripheral pulses are felt. Hemoglobin 10, hematocrit 31.3, platelets 248, BUN 21, creatinine 0.91, GFR 82. Assessment And Plan: Lung cancer with metastasis to the liver. I have discussed with the patient an d the family regarding options of treatment and care. The patient and family are more wanting to hav e consulted treatment, however, they would like to know the type of the tumor and should that help wi th his comfort care. We will ask consult on that from their standpoint and should melchor t help his comfort care we will go ahead and ask for the biopsy to be done. Otherwise, patient's [facility] hospice has been consulted. SHANE/MARISSA Voice ID: [id number] Report ID: [id number]
[2019-09-17] MEDS: ENSURE ENLIVE 237 ML CAN PO SCH (21:00)
[2019-09-18] MEDS: ALBUTEROL 2.5 MG/3 ML NEB SOL NEB PRN (05:25)
[2019-09-18] MEDS: MORPHINE 2 MG/ML SYR IV PRN (06:32)
--- NOTE | 2019-09-18 07:59 | ECHO ---
HEIGHT: 5 ft 3 in WEIGHT: 183 lb 0 oz DATE OF STUDY: 09/17/[address]: Mike Caceres MD 2-DIMENSIONAL: YES M.MODE: YES DOPPLER: YES COLOR FLOW: YES TDS: YES PORTABLE: NO DEFINITY: NO BUBBLE STUDY: NO DIAGNOSIS: SHORTNESS OF BREATH CARDIAC HISTORY: CATHERIZATION: NO SURGERY: NO PROSTHETIC VALVE: NO PACEMAKER: NO MEASUREMENTS (cm) DIASTOLIC (NORMALS) SYSTOLIC (NORMALS) IVSd 1.2 (0.6-1.2) LA Diam 2.6 (1.9-4.0) LVEF 77% LVIDd 3.8 (3.5-5.7) LVIDs 2.1 (2.0-3.5) %FS 45% LVPWd 1.2 (0.6-1.2) Ao Diam 2.7 (2.0-3.7) 2 DIMENSIONAL ASSESSMENT: RIGHT ATRIUM: NORMAL LEFT ATRIUM: NORMAL RIGHT VENTRICLE: NORMAL LEFT VENTRICLE: NORMAL TRICUSPID VALVE: NORMAL MITRAL VALVE: MITRAL ANNULAR CALCIFICATION PULMONIC VALVE: NORMAL AORTIC VALVE: SCLEROSIS PERICARDIAL EFFUSION: NONE AORTIC ROOT: NORMAL LEFT VENTRICULAR WALL MOTION: NORMAL DOPPLER/COLOR FLOW: MILD TRICUSPID REGURGITATION. COMMENTS: NORMAL LEFT VENTRICULAR SIZE AND FUNCTION. MITRAL ANNULAR CALCIFICATION. AORTIC SCLEROSIS. MILD TRICUSPID REGURGITATION. NORMAL RIGHT VENTRICULAR SYSTOLIC PRESSURE. TECHNOLOGIST: Jacob PRESTON
[2019-09-18] MEDS: LORAZEPAM 0.5 MG TABLET PO PRN (10:26)
[2019-09-18] MEDS: ENSURE ENLIVE 237 ML CAN PO SCH (10:26)
--- NOTE | 2019-09-18 12:53 | P.PN ---
Subjective Date of Service: 09/18/19 Chief Complaint: Suspected lung cancer Patient said he feels claustrophobic and now after discussing with family members agrees to have a biopsy done which will be scheduled as an outpatient denies any pain feels anxious Review of Systems General: Weakness Respiratory: Shortness of Breath Physical Examination - Vital Signs Temperature: 97.9 F Blood Pressure: 158/71 Pulse: 108 Respirations: 18 Pulse Ox (%): 94 - Physical Exam General: Alert, Oriented x3 Respiratory: Clear to auscultation bilaterally, Diminished Assessment & Plan - Problems (Diagnosis) (1) Lung cancer Current Visit: Yes Status: Acute Plan: Patient is feeling slightly better he has now agreed to have a biopsy done will schedule him as an outpatient I the next when is day were advised him to remain off the Plavix can be discharged home in november qualify for home O2 on Xanax and tremor dial blood pressure is slightly elevated I have discussed with patient the risk of bronchoscopy HD including bleeding infection and lung collapse any agrees the present of his entire family were supportive patient is having the procedure done Qualifiers: Laterality: right
[2019-09-18 16:15] VITALS: BP 161/66; TEMP 98.3
[2019-09-18] MEDS: IPRATROPIUM BROM 0.5MG/2.5ML NEB PRN (16:22)
[2019-09-18 16:56] VITALS: O2SAT 94
[2019-09-18] MEDS ORDERED: ALBUTEROL 2.5 MG/3 ML NEB SOL NEB PRN (18:00)
[2019-09-18] MEDS ORDERED: IPRATROPIUM BROM 0.5MG/2.5ML NEB PRN (18:00)
--- NOTE | 2019-09-19 03:50 | DS ---
Date of Discharge: 09/18/2019 History: A 73-year-old male who was admitted to the hospital when he presented to the emergency room with gradual increased fatigue and shortness of breath. He was found to have large lung cancer with metastasis to the liver. He was admitted for that. Past Medical History: As per admit note. Social History: As per admit note. Family History: As per admit note. Medications: As per admit note. Allergies: PER ADMIT NOTE. Physical Examination: Diagnostic data as per admit note. Hospital Course: The patient was admitted to the hospital. He was put on Atrovent breathing nebuliz er and oxygen protocol. I have consulted Dr. Caceres and the patient discussed his condition with René Caceres and with me and he did not want any chemotherapy per se, but he wanted to do the biopsy t o know what is the kind of his lung cancer because he is thinking that his kids need to know the kind and should they carry risk of that or not. The patient himself has been a heavy smoker in the past. That is all what he needs from the biopsy, also if there is any chance of some treatment depending on the kind of the cancer that will be slow the growth of it. He is thinking about that too. So at any rate since he was on Plavix and aspirin, Dr. Caceres wants to wait about 2 weeks from now to do the biopsy. I have discussed all this with his family and the patient and the patient is agreeing to stop those medicines and to go ahead and do the biopsy with a bronchoscopy. He did not have any acc essible lymph nodes to be biopsied and his liver metastatic lesions were small, so it is going to be through bronchoscopy. No further diagnosis like head CTs or bone scan or body scan because the patie nt is adamant not to have any form of extensive treatment. Also him and his family have declined any resuscitation measures inpatient or outpatient to be done to him should he stops breathing or his he art stops beating. As for now, I think those things could be arranged for the patient on outpatient basis. I have asked Oncology to see the patient to have their input and to establish care with him d epending on his wishes. So, we will discharge him after he is seen by Oncology and he is to follow u p with Dr. Caceres to arrange for his bronchoscopy and biopsy and between Oncology, Pulmonary, and m e will arrange for his management and care. The patient is leaning towards hospice, but after biopsi es. I have sent the patient on small dose of Xanax to help him at times of anxiety. The patient deni sanders is not confused. He is conducting discussion well and he acknowledges that staying in a confined room made him get confused along with the morphine, so I think he will do better also at home from th at standpoint. Look discharge orders for details indication the. MFS/MODL Voice ID: [id number] Report ID: [id number]
== END 2019-09-18 18:51 | disposition home or self-care (01) | DRG 181 ==
LOC: ER 07:18 → ERHOLD 10:22 → 4TH 12:16
PROVIDERS: ADMIT Internal Medicine; ATTEND Internal Medicine
DX: C34.90 Malignant neoplasm of unspecified part of unspecified bronchus or lung (principal); C78.7 Secondary malignant neoplasm of liver and intrahepatic bile duct; I10 Essential (primary) hypertension; D63.0 Anemia in neoplastic disease; E78.5 Hyperlipidemia, unspecified; F41.9 Anxiety disorder, unspecified; R00.0 Tachycardia, unspecified; M10.9 Gout, unspecified; R09.02 Hypoxemia; Z87.891 Personal history of nicotine dependence
CPT/HCPCS: 36415; 71045; 71260; 74177; 80048; 80076; 81003; 83690; 83880; 84145; 84484; 85025; 87040; 87804; 93005; 93306; 94640; 96360; 99285; J2270; J2405; J2920; J7030; J7040; Q9967

== ENCOUNTER 2019-09-24 07:04 | Day surgery (SDC) | payer OTHER ==
[2019-09-24] MEDS ORDERED: Ringers Lactate 1,000 ML IV ONE (07:13)
[2019-09-24] MEDS ORDERED: Phenylephrine HCl 10 MG/ML 1 ML VIAL ONE (07:13)
[2019-09-24] MEDS ORDERED: FENTANYL CITR 100 MCG/2 ML ONE (07:31)
[2019-09-24] MEDS ORDERED: propofoL 200 MG/20 ML VIAL IV ONE ×2 (07:31)
[2019-09-24] MEDS ORDERED: LIDOCAINE 1% MPF 2 ML AMPULE ONE (07:31)
[2019-09-24] MEDS ORDERED: MIDAZOLAM HCL 2 MG/2 ML INJ ONE (07:31)
[2019-09-24] MEDS ORDERED: LIDOCAINE 4% TOP SOLUTION TOP ONE ×2 (07:35→07:45)
[2019-09-24] MEDS ORDERED: GLYCOPYRROLATE 0.2 MG/ML SYR ONE (07:38)
[2019-09-24] MEDS ORDERED: EPINEPHRINE/PF 1 MG/ML AMP ONE (07:44)
[2019-09-24] MEDS ORDERED: LIDOCAINE 1% MPF 30 ML VIAL ONE (07:44)
[2019-09-24] MEDS ORDERED: LIDOCAINE VISCOUS 2% SOLN 15 ML UDC ONE (07:44)
--- NOTE | 2019-09-24 08:46 | P.OP ---
Date of Service: 09/24/19 (Bronchoscopy the right upper lobe transbronchial biopsy and a bronchial biopsy wire brushing send a BAL) Findings and Operative Technique Patient is 73 years of age evaluated by me in the hospital had extensive mediastinal adenopathy and presumed metastatic lung cancer admitted with some chest discomfort Obtaining informed consent from the patient he was premedicated by anesthesia findings normal vocal cords normal trachea normal juan carlos normal left-sided bronchial anatomy the right upper lobe was of normal right upper lobe superior segment was obstructed multiple biopsies were obtained patient tolerated the procedure very well did not experience any hypertension arrhythmias
--- NOTE | 2019-09-24 09:05 | RAD REPORT ---
EXAM DESCRIPTION: RAD - FLUORO-GUIDE FOR BRONCH [id number] - 09/24/2019 8:55 am CLINICAL HISTORY: Right lung mass FINDINGS: Fluoroscopy time 3.3 minutes Four fluoroscopic spot images obtained A bronchoscope has been placed into the right lung Procedure performed by Dr. Caceres
[2019-09-24 09:24] VITALS: TEMP 98.4
[2019-09-24 09:26] VITALS: BP 120/57; O2SAT 96
--- NOTE | 2019-09-24 10:04 | RAD REPORT ---
EXAM DESCRIPTION: Margo Single View09/24/2019 9:41 am CLINICAL HISTORY: Lung mass COMPARISON: September 16, 2019 FINDINGS: A pneumothorax is not seen status post right bronchoscopy
== END 2019-09-24 10:40 | disposition home or self-care (01) ==
LOC: OR 07:04
PROVIDERS: ATTEND Internal Medicine Sleep Medicine
PROC: 0B9C8ZX Drainage of Right Upper Lung Lobe, Via Natural or Artificial Opening Endoscopic, Diagnostic (ICD-10-PCS; 2019-09-24)
PROC: 0BDC8ZX Extraction of Right Upper Lung Lobe, Via Natural or Artificial Opening Endoscopic, Diagnostic (ICD-10-PCS; principal; 2019-09-24 08:00)
DX: C34.11 Malignant neoplasm of upper lobe, right bronchus or lung (principal); C67.9 Malignant neoplasm of bladder, unspecified; I10 Essential (primary) hypertension; I73.9 Peripheral vascular disease, unspecified; I25.10 Atherosclerotic heart disease of native coronary artery without angina pectoris; Z95.5 Presence of coronary angioplasty implant and graft; Z87.891 Personal history of nicotine dependence
CPT/HCPCS: 87070; 88108 ×2; 87184; 88305 ×2; 87077 ×2; 87186 ×2; 87015; 87206; 87116; 71045; 76000; 31628; 31624; J2704 ×2; J2370 ×2; J2250; J3010; J2001; J7120; J0171